=== PATIENT | male | born 1980 | race Caucasian/White ===

== ENCOUNTER 2019-04-20 12:19 | Emergency (ER) | payer MEDICARE ==
[~2019-04-20] VITALS: Ht 198.1 cm; Wt 102.1 kg
== END 2019-04-20 14:02 | disposition home or self-care (01) ==
LOC: ED 12:19
DX: F41.9 Anxiety disorder, unspecified (principal); Z79.899 Other long term (current) drug therapy
CPT/HCPCS: 80053; 85025; 99283; J7030